=== PATIENT | female | born 1980 | race African-American/Black ===

== ENCOUNTER 2017-03-03 19:02 | Emergency (ER) | payer MEDICAID, OTHER ==
[~2017-03-03] VITALS: Ht 167.6 cm; Wt 65.0 kg
[2017-03-03 20:29] VITALS: BP 115/75
== END 2017-03-04 00:05 | disposition left against medical advice (07) ==
LOC: ER 19:02
DX: Z53.21 Procedure and treatment not carried out due to patient leaving prior to being seen by health care provider (principal)